=== PATIENT | male | born 2000 | race Caucasian/White ===

== ENCOUNTER 2022-11-06 11:42 | Emergency (ER) | payer OTHER ==
[~2022-11-06] VITALS: Ht 172.7 cm; Wt 96.0 kg
[2022-11-06 14:10] VITALS: BP 119/76
[2022-11-06] MEDS ORDERED: IBUP-1492 PO (14:11)
[2022-11-06] MEDS ORDERED: IBUPROFEN 600 MG TABLET PO ONE (14:15)
== END 2022-11-06 14:56 | disposition home or self-care (01) ==
LOC: EMS 11:52
DX: S93.401A Sprain of unspecified ligament of right ankle, initial encounter (principal); F12.90 Cannabis use, unspecified, uncomplicated; X58.XXXA Exposure to other specified factors, initial encounter; Y93.89 Activity, other specified; Y92.89 Other specified places as the place of occurrence of the external cause; Y99.8 Other external cause status
CPT/HCPCS: 99284; 73562-TC; 73590-TC; 73610-TC; Z7502; Z7610

== ENCOUNTER 2023-06-23 01:00 | Emergency (ER) | payer OTHER ==
[~2023-06-23] VITALS: Ht 172.7 cm; Wt 72.0 kg
[~2023-06-23 01:00] MED LIST: IBUP-1492 PO
[2023-06-23 01:14] VITALS: BP 136/77; PULSE 75; RESP 16; TEMP 97.6
[2023-06-23] MEDS ORDERED: ONDANSETRON HCL 4 MG TABLET PO ONE (01:15)
[2023-06-23] MEDS ORDERED: SODIUM CHLORIDE 0.9% 1,000 ML IV ONE (02:30)
== END 2023-06-23 03:37 | disposition home or self-care (01) ==
LOC: EMS 01:02
DX: F12.188 Cannabis abuse with other cannabis-induced disorder (principal)
CPT/HCPCS: 99283; 96360; Q0162; J7030

== ENCOUNTER 2024-06-20 19:33 | Emergency (ER) | payer OTHER ==
[~2024-06-20] VITALS: Ht 172.7 cm; Wt 86.4 kg
[2024-06-20 20:08] VITALS: TEMP 99
[2024-06-20] MEDS ORDERED: ESCI20TA87 PO (20:15)
[2024-06-20] MEDS: CEPHALEXIN MONOHYDRATE 500 MG CAPSULE PO ONE (21:40)
[2024-06-20] MEDS: IBUPROFEN 600 MG TABLET PO ONE (21:40)
[2024-06-20] MEDS ORDERED: CEPH-558 PO (21:51)
[2024-06-20] MEDS ORDERED: IBUP-1492 PO (21:51)
[2024-06-20 22:00] VITALS: BP 128/77; PULSE 79; RESP 18; O2SAT 97
[2024-06-20] MEDS: LIDOCAINE 1% 10 ML VIAL ID ONE (22:02)
== END 2024-06-20 22:24 | disposition home or self-care (01) ==
LOC: EMS 19:33
DX: S61.211A Laceration without foreign body of left index finger without damage to nail, initial encounter (principal); F12.90 Cannabis use, unspecified, uncomplicated; W26.0XXA Contact with knife, initial encounter; Y93.89 Activity, other specified; Y92.89 Other specified places as the place of occurrence of the external cause; Y99.0 Civilian activity done for income or pay
CPT/HCPCS: 12001; 99283